=== PATIENT | female | born 1935 | race Caucasian/White ===

== ENCOUNTER 2017-07-23 10:13 | Inpatient (IN) | payer MEDICARE, BC ==
[~2017-07-23] VITALS: Ht 167.6 cm; Wt 54.4 kg
[2017-07-23] MEDS ORDERED: OMEPRAZOLE DR 40 MG CAPSULE PO (10:43)
[2017-07-23] MEDS ORDERED: GABAPENTIN 100 MG CAPSULE PO (10:43)
[2017-07-23] MEDS ORDERED: VALACYCLOVIR HCL 500 MG TABLET PO (10:43)
[2017-07-23] MEDS ORDERED: MONT4TAB9 PO (10:43)
[2017-07-23] MEDS ORDERED: ESTROPIPATE PO (10:43)
--- NOTE | 2017-07-23 10:53 | NUR ---
Pt started feeling sick, w/cough, on Sunday, w/fever. Pt started herself on Z-pack yesterday. Also c/o CP, burning. Pt denies SOB, dizziness, n/v, no other complaints, no distress noted. Pt placed on monitor, EKG -- given to .
[2017-07-23 11:13] LABS: BASOPHILS % (AUTO) 0.4 % (0.0-2.0); HEMATOCRIT 37.4 % (31.2-41.9); HEMOGLOBIN 12.4 g/dL (10.9-14.3); LYMPHOCYTES # (AUTO) 0.6 K/uL (20.0-40.0); LYMPHOCYTES % (AUTO) 10.5 % (20.5-51.5); MEAN CORPUSCULAR HEMOGLOBIN 31.9 uug (24.7-32.8); MEAN CORPUSCULAR HGB CONC 33 g/dL (32.3-35.6); MEAN CORPUSCULAR VOLUME 95.8 fL (75.5-95.3); MONOCYTES # (AUTO) 0.4 K/uL (2.0-10.0); MONOCYTES % (AUTO) 7.8 % (0.0-11.0); NEUTROPHILS # (AUTO) 4.5 K/uL (1.8-8.9); NEUTROPHILS % (AUTO) 81.3 % (38.5-71.5); PLATELET COUNT (AUTO) 156 K/uL (179-408); WHITE BLOOD COUNT (AUTO) 5.5 K/uL (3.8-11.8)
[2017-07-23 11:19] LABS: CARBON DIOXIDE 24 mmol/L (21-32); CHLORIDE 102 mmol/L (98-107); CREATININE 0.9 mg/dL (0.6-1.3); GLUCOSE 99 mg/dL (74-106); POTASSIUM 3.2 mmol/L (3.5-5.1); UREA NITROGEN, BLOOD 10 mg/dL (7-18)
--- NOTE | 2017-07-23 11:20 | NUR ---
obtained samples for flu, taken to lab.
[2017-07-23 11:31] LABS: ALANINE AMINOTRANSFERASE 23 U/L (14-59); ALKALINE PHOSPHATASE 66 U/L (50-136); ASPARTATE AMINOTRANSFERASE 28 U/L (15-37); BILIRUBIN,DIRECT 0.1 mg/dL (0.0-0.2); BILIRUBIN,TOTAL 0.2 mg/dL (0.2-1.0); TOTAL PROTEIN, SERUM 6.3 g/dL (6.4-8.2)
[2017-07-23 11:43] LABS: *BLOOD, URINE Trace-lysed (NEGATIVE); *CLARITY,URINE CLEAR (CLEAR); *COLOR,URINE YELLOW (YELLOW); *PROTEIN,URINE 2+ (NEGATIVE); LEUKOCYTE ESTERASE ,URINE NEGATIVE (NEGATIVE); NITRITE, URINE NEGATIVE (NEGATIVE); UGLUCOSE NEGATIVE (NEGATIVE)
[2017-07-23 11:47] LABS: *BILIRUBIN,URIN NEGATIVE (NEGATIVE)
[2017-07-23 11:51] LABS: *KETONES,URINE 3+ (NEGATIVE)
[2017-07-23 11:55] LABS: BACTERIA,URINE FEW /HPF (NONE SEEN); SQUAMOUS EPITHELIAL CELL,UR FEW /HPF (NONE SEEN); WBC,URINE 0-3 /HPF (0-3)
[2017-07-23] MEDS ORDERED: OSELTAMIVIR PHOSPHATE 75 MG CAPSULE PO ONE (12:00)
[2017-07-23] MEDS ORDERED: OSELTAMIVIR PHOSPHATE 75 MG CAPSULE ONE (12:19)
--- NOTE | 2017-07-23 12:28 | NUR ---
spoke with via telephone and pt to be admitted to m/s. Called m/s floor for bed assignment, charge nurse unavailable at this time, will call back.
--- NOTE | 2017-07-23 13:06 | NUR ---
Called to give report to judy Rogers, shekhar MUÑIZB.
--- NOTE | 2017-07-23 13:20 | NUR ---
Called report to
[2017-07-23] MEDS ORDERED: MAGNESIUM HYDROXIDE 30 ML LIQUID UDC PO PRN (13:30)
[2017-07-23] MEDS ORDERED: ONDANSETRON 4 MG/2 ML VIAL IV PRN (13:30)
[2017-07-23] MEDS ORDERED: Z GUARD REMEDY PASTE 57 GM TUBE TOP PRN (13:30)
[2017-07-23] MEDS ORDERED: HYDROCODONE/APAP 5-325MG TABLET PO PRN (13:30)
[2017-07-23] MEDS ORDERED: ACETAMINOPHEN 325 MG TABLET PO PRN (13:30)
--- NOTE | 2017-07-23 14:05 | NUR ---
PATIENT TRANSFERRED FROM ER ONTO MEDICAL-SURGICAL FLOOR AT THIS TIME IN STABLE CONDITION, NO S/S OF DISTRESS, VITAL SIGNS STABLE. BELONGINGS CHECKLIST COMPLETED. PT IS AMBULATORY. IVF ORDERED, ANTIBIOTICS AND WILL ADMINISTER. BED IN LOCKED/LOW POSITION, SIDE RAILS UP X2, CALL LIGHT WITHIN REACH. WILL CONTINUE TO MONITOR.
[2017-07-23] MEDS ORDERED: OSELTAMIVIR NG/GT 30 MG/5 ML LIQ PO SCH (14:45)
[2017-07-23] MEDS: IV 1/2NS 1000 ML 1,000 ML IV PRN (15:19)
[2017-07-23] MEDS ORDERED: AZITHROMYCIN IV 500 MG in IV DEXTROSE 5% 250 ML IV SCH (16:00)
[2017-07-23 16:18] VITALS: BP 93/52
--- NOTE | 2017-07-23 19:30 | NUR ---
RECEIVED PT AWAKE, ALERT, ORIENTEDX4. PT SHOWS NO SIGNS OF DISTRESS. IV INTACT AND PATENT. NO INFILTRATION NOTED. CALL LIGHT WITHIN REACH. WILL CONTINUE TO MONITOR.
[2017-07-23 20:00] VITALS: BP 105/50
--- NOTE | 2017-07-23 22:00 | NUR ---
PT COMPLAINED ABOUT HEARING DOOR SLAMMING. TOLD THE PT THAT IT IS OUR MEDICATION ROOM AND WE WILL DO SOMETHING ABOUT IT TO MINIMIZE OR ELIMINATE THE NOISE. CHARGE NURSE AWARE AND MAKE ABOUT IT. WILL CONTINUE TO MONITOR THE PT.
[2017-07-24 04:00] VITALS: BP 91/46
--- NOTE | 2017-07-24 06:30 | NUR ---
PT SLEPT THROUGHOUT THE SHIFT. COMPLAINED ABOUT THE SLAMMING OF THE DOOR IN THE MEDICATION ROOM. CHARGE NURSE AWARE. PT COMPLAINED ALSO THAT SHE NEEDS TO DISCONNECT FROM THE IV WHEN SHE GO TO THE RESTROOM UNFORTUNATELY I'M WITH ANOTHER PT SO SHE WASN'T DISCONNECTED BUT WAS ASSISTED BY THE [employer] ARCHITECT TO THE BATHROOM WITH THE IV CONNECTED TO HER. PT HAD 1 BOWEL MOVEMENT. PT STABLE AND NO SIGNS OF SYMPTOMS OF DISTRESS. SAFETY AND COMFORT PROVIDED. ALL NEEDS ARE MET.
[2017-07-24 06:40] LABS: BASOPHILS % (AUTO) 0.6 % (0.0-2.0); HEMATOCRIT 37.1 % (31.2-41.9); HEMOGLOBIN 12.5 g/dL (10.9-14.3); LYMPHOCYTES # (AUTO) 1.1 K/uL (20.0-40.0); LYMPHOCYTES % (AUTO) 32.2 % (20.5-51.5); MEAN CORPUSCULAR HEMOGLOBIN 31.9 uug (24.7-32.8); MEAN CORPUSCULAR HGB CONC 34 g/dL (32.3-35.6); MEAN CORPUSCULAR VOLUME 94.3 fL (75.5-95.3); MONOCYTES # (AUTO) 0.5 K/uL (2.0-10.0); MONOCYTES % (AUTO) 13.8 % (0.0-11.0); NEUTROPHILS # (AUTO) 1.9 K/uL (1.8-8.9); NEUTROPHILS % (AUTO) 53.4 % (38.5-71.5); PLATELET COUNT (AUTO) 147 K/uL (179-408); RED BLOOD CELL COUNT(AUTO) 3.94 MIL/uL (3.63-4.92); WHITE BLOOD COUNT (AUTO) 3.5 K/uL (3.8-11.8)
[2017-07-24 07:12] LABS: ALANINE AMINOTRANSFERASE 21 U/L (14-59); ALKALINE PHOSPHATASE 56 U/L (50-136); ASPARTATE AMINOTRANSFERASE 29 U/L (15-37); BILIRUBIN,TOTAL 0.2 mg/dL (0.2-1.0); CARBON DIOXIDE 26 mmol/L (21-32); CHLORIDE 104 mmol/L (98-107); CHOLESTEROL 122 mg/dL (<200); CREATININE 0.7 mg/dL (0.6-1.3); GLUCOSE 92 mg/dL (74-106); HDL CHOLESTEROL 52 mg/dL (40-60); MAGNESIUM 1.7 mg/dL (1.8-2.4); PHOSPHOROUS 3.2 mg/dL (2.5-4.9); POTASSIUM 3.3 mmol/L (3.5-5.1); TOTAL PROTEIN, SERUM 5.9 g/dL (6.4-8.2); TRIGLYCERIDES 62 MG/DL (30-150); UREA NITROGEN, BLOOD 7 mg/dL (7-18)
[2017-07-24] MEDS: IV 1/2NS 1000 ML 1,000 ML IV PRN (08:46)
[2017-07-24] MEDS ORDERED: OSELTAMIVIR PHOSPHATE 75 MG CAPSULE PO SCH (09:00)
[2017-07-24] MEDS ORDERED: POTASSIUM CHLORIDE 20 MEQ TAB.PRT.SR PO ONE (10:15)
[2017-07-24] MEDS ORDERED: MAGNESIUM OXIDE 400 MG TABLET PO ONE (10:15)
--- NOTE | 2017-07-24 11:22 | NUR ---
Nurse's Notes: Patient had three stools since 7 am, stool at present time was mushy stool brown color, patient is taking tamiflu, patient also given KCL 40 meQ and 1 tablet magnesium oxide. Remains on droplet precautions, coughing up yellow sputum. IV is infusing at 75 cc per hour. No complaints of any pain. Patient is ambulatory.
[2017-07-24 12:02] VITALS: BP 102/52
--- NOTE | 2017-07-24 15:27 | NUR ---
Daughter is at the bedside, wants to know if patient will be going home, There is no discharge orders. IV Aithromycin is stopped, took Irina-flu capsule this morning. Will call Dr Bryce Randle if okay to be discharged.
[2017-07-24 16:00] VITALS: BP 103/59
--- NOTE | 2017-07-24 16:54 | NUR ---
Bedside report received from Toshia Boudreaux. Patient received AAOX4. Vitals signs stable IV to left infiltrated.
--- NOTE | 2017-07-24 17:17 | NUR ---
At this time Dr. Randle discussing care plan with both patient and pt's daughter who remains at bedside. informed of infiltrated IV and orders to dcd IV fluid received and ok not to have another IV line started at least for now.
--- NOTE | 2017-07-24 17:57 | NUR ---
As informed patient will be dcd home today, awaiting documentation to be finalized. IV line dcd. and warm pack given to patient. Pt. AAOX4. vital signs stable.
--- NOTE | 2017-07-24 18:30 | NUR ---
DCD instructions provided to patient as well as original prescription in case of computer malfunctioning. IV line dcd. Both patient and daughter instructed on s/s of complication to monitor. patient left via wheelchair. AAOX4. vital signs stable, no c/o pain.
[2017-07-25] MEDS ORDERED: GABAPENTIN 100 MG PO SCH (09:00)
[2017-07-25] MEDS ORDERED: MONTELUKAST SODIUM 10 MG TABLET PO SCH (09:00)
[2017-07-25] MEDS ORDERED: GABAPENTIN 100 MG CAPSULE PO SCH (09:00)
[2017-07-25] MEDS ORDERED: Medication Not On Formulary EA (Montelukast Sodium (Singulair) 4 MG) PO SCH (09:00)
== END 2017-07-24 18:35 | disposition home or self-care (01) | DRG 193 ==
LOC: ER 10:13 → MED 13:43
PROVIDERS: ADMIT Internal Medicine; ATTEND Internal Medicine
DX: J10.1 Influenza due to other identified influenza virus with other respiratory manifestations (principal); J96.01 Acute respiratory failure with hypoxia; J44.9 Chronic obstructive pulmonary disease, unspecified; R32 Unspecified urinary incontinence; K21.9 Gastro-esophageal reflux disease without esophagitis; I34.1 Nonrheumatic mitral (valve) prolapse; I10 Essential (primary) hypertension; E87.6 Hypokalemia; Z87.891 Personal history of nicotine dependence; G47.33 Obstructive sleep apnea (adult) (pediatric); E83.42 Hypomagnesemia
CPT/HCPCS: 36415; 70030-TC; 71045; 83605; 83735; 84100; 85025; 85730; 87040; 87086; 87400; 93005; A4663; J0456; J3490; J7060